=== PATIENT | female | born 1945 | race Caucasian/White ===

== ENCOUNTER 2018-09-07 05:30 | Inpatient (IN) | payer MEDICARE ==
[2018-09-02 10:33] LABS: BASOPHILS % (AUTO) 0.6 % (0-1); EOSINOPHILS # (AUTO) 0.1 X10'3 (0-0.9); EOSINOPHILS % (AUTO) 2.1 % (0-6); LYMPHOCYTES # (AUTO) 1.4 X10'3 (1.1-4.8); LYMPHOCYTES % (AUTO) 32.5 % (21-51); MEAN CORPUSCULAR HEMOGLOBIN 32.1 PG (27.0-31.0); MEAN CORPUSCULAR HGB CONC 33.2 % (33.0-36.5); MEAN CORPUSCULAR VOLUME 96.7 FL (78-98); MEAN PLATELET VOLUME 8.3 FL (7.4-10.4); MONOCYTES # (AUTO) 0.5 X10'3 (0-0.9); MONOCYTES % (AUTO) 10.9 % (2-12); NEUTROPHILS # (AUTO) 2.2 X10'3 (1.8-7.7); NEUTROPHILS % (AUTO) 53.9 % (42-75); PRE OP HEMATOCRIT 42.2 % (35.0-45.0); PRE OP PLATELET COUNT 232 X10'3 (140-440); RED BLOOD COUNT 4.36 X10'6 (4.20-5.60); RED CELL DISTRIBUTION WIDTH 12.1 % (11.5-14.5)
[2018-09-02 10:34] LABS: PRE OP PROTIME 10.1 SECONDS (9.0-12.0)
[2018-09-02 10:37] LABS: ALBUMIN 3.5 G/DL (3.4-5.0); ALBUMIN/GLOBULIN RATIO 0.9 (1.1-1.5); ALKALINE PHOSPHATASE 125 IU/L (46-116); BLOOD UREA NITROGEN 17 MG/DL (7-18); BUN/CREATININE RATIO 16.5 (6.6-38.0); CHLORIDE 102 MMOL/L (99-107); CREATININE 1.03 MG/DL (0.40-0.90); PRE OP ALT 17 U/L (30-65); PRE OP ANION GAP 6 (8-16); PRE OP AST 18 U/L (10-37); PRE OP BILIRUB, TOTAL 0.4 MG/DL (0.0-1.0); PRE OP GLUCOSE 97 MG/DL (70-104); PRE OP POTASSIUM 3.9 MMOL/L (3.4-5.1); PRE OP SODIUM 141 MMOL/L (135-145); TOTAL CARBON DIOXIDE 32.8 MMOL/L (24-32); TOTAL PROTEIN 7.4 G/DL (6.4-8.2); eGFR 53 ML/MIN
[~2018-09-07] VITALS: Ht 170.2 cm; Wt 67.6 kg
[2018-09-07] VITALS (19 sets, daily range): BP systolic 120–158; BP diastolic 63–90
[~2018-09-07 05:30] MED LIST: ASPI-1265 PO; ATOR10TA PO; CITA-278 PO; CLINDAmcin 900mg/NS 50ml IVPB 50 ML IV ONE; LISI10TA4 PO; VANCOMYCIN INJ 1000 MG in NORMAL SALINE 250ml IV.SOLN IV ONE; famotidine 20mg tablet PO ONE; ringers solution, lacted 1,000 ML IV SCH; tranexamic acid inj. 1,000 MG in normal saline 100 ML IV ONE
[2018-09-07] MEDS ORDERED: LIDOcaine 1% (10mg/ml) 2ml vial ONE (06:02)
[2018-09-07] MEDS ORDERED: tetracaine 1% (10mg/ml) pres. free inj. ONE (07:23)
[2018-09-07] MEDS ORDERED: fentaNYL/PF 50MCG/1 ML 2ML syringe ONE (07:25)
[2018-09-07] MEDS ORDERED: morphine /PF 1mg/ml 10ml inj. ONE (07:25)
[2018-09-07] MEDS ORDERED: MIDAZolam 1mg/ml 10ml vial ONE (07:25)
[2018-09-07] MEDS ORDERED: propofol inj 20 ML IV ONE ×2 (08:05)
[2018-09-07] MEDS ORDERED: ringers solution, lacted 1,000 ML IV SCH (08:12)
[2018-09-07] MEDS ORDERED: ondansetron/PF 4mg/2ml inj IV PRN ×2 (08:15→10:30)
[2018-09-07] MEDS ORDERED: hydrALAZINE 20mg/ml inj. IV PRN (08:15)
[2018-09-07] MEDS ORDERED: morphine 4 MG/ML inj SYRINge IV PRN ×2 (08:15)
[2018-09-07] MEDS ORDERED: fentaNYL/PF 50MCG/1 ML 2ML syringe IV PRN ×2 (08:15)
[2018-09-07] MEDS ORDERED: labetalol 20mg/4ml (5mg/ml) syringe IV PRN (08:15)
--- NOTE | 2018-09-07 10:15 | NUR ---
Received from OR via bed, accompanied by Anesthesiologist. Report received. Initial physical assessment done and recorded.
[2018-09-07] MEDS ORDERED: bisacodyl 10mg suppository rectal RC PRN (10:30)
[2018-09-07] MEDS ORDERED: HYDROmorphone inj. 0.5 MG/0.5 ML DISP.SYRIN IV PRN (10:30)
[2018-09-07] MEDS ORDERED: acetaminophen 325mg tablet PO PRN (10:30)
[2018-09-07] MEDS ORDERED: magnesium hydroxide 30ml (MOM) UD suspension PO PRN (10:30)
[2018-09-07] MEDS ORDERED: diphenhydrAMINE 25mg capsule PO PRN ×2 (10:30)
--- NOTE | 2018-09-07 11:30 | NUR ---
Discharge criteria met, report to receiving floor. Transferred to room in stable condition.
[2018-09-07] MEDS: HYDROcodone/acetaminophen 10/325mg tab PO PRN ×4 (13:27→22:04)
[2018-09-07] MEDS: potassium Cl 20mEq in NS 1,000 ML IV SCH ×2 (15:48→23:46)
[2018-09-07] MEDS: aspirin 81mg tablet.DR PO SCH (16:36)
[2018-09-07] MEDS: clindamycin-Cleocin 900mg/D5W 50 ML IV SCH ×2 (16:36→23:42)
--- NOTE | 2018-09-07 18:15 | NUR ---
Problems reprioritized. Patient report given, questions answered & plan of care reviewed with Carol ROJAS.
[2018-09-07] MEDS ORDERED: vancomycin/NS 1 GM ADD-VANTAGE 250 ML IV SCH (20:00)
[2018-09-07] MEDS: sennosides 8.6mg tablet PO SCH (20:13)
[2018-09-08] MEDS: HYDROcodone/acetaminophen 10/325mg tab PO PRN ×2 (01:45→05:28)
[2018-09-08 02:00] VITALS: BP 144/78
[2018-09-08 06:00] VITALS: BP 138/60
[2018-09-08 06:15] LABS: BASOPHILS % (AUTO) 0.1 % (0-1); EOSINOPHILS # (AUTO) 0.2 X10'3 (0-0.9); EOSINOPHILS % (AUTO) 1.8 % (0-6); HEMATOCRIT 31.7 % (35.0-45.0); HEMOGLOBIN 10.4 g/dl (12.0-16.0); LYMPHOCYTES # (AUTO) 0.4 X10'3 (1.1-4.8); LYMPHOCYTES % (AUTO) 3.2 % (21-51); MEAN CORPUSCULAR HEMOGLOBIN 31.9 PG (27.0-31.0); MEAN CORPUSCULAR VOLUME 96.7 FL (78-98); MEAN PLATELET VOLUME 8.2 FL (7.4-10.4); MONOCYTES # (AUTO) 1.2 X10'3 (0-0.9); MONOCYTES % (AUTO) 8.9 % (2-12); NEUTROPHILS # (AUTO) 11.2 X10'3 (1.8-7.7); PLATELET COUNT 176 X10'3 (140-440); RED BLOOD COUNT 3.28 X10'6 (4.20-5.60); RED CELL DISTRIBUTION WIDTH 13.4 % (11.5-14.5); WHITE BLOOD COUNT 13.1 X10'3 (4.5-11.0)
[2018-09-08] MEDS ORDERED: oxyCODONE/APAP 10/325mg tablet PO PRN (06:45)
[2018-09-08 06:51] LABS: ALANINE AMINOTRANSFERASE 21 U/L (12-78); ALBUMIN 2.7 G/DL (3.4-5.0); ALBUMIN/GLOBULIN RATIO 0.8 (1.1-1.5); ALKALINE PHOSPHATASE 82 IU/L (46-116); ANION GAP 7 (8-16); ASPARTATE AMINO TRANSFERASE 34 U/L (10-37); BILIRUBIN,TOTAL 0.6 MG/DL (0.1-1.0); BLOOD UREA NITROGEN 15 MG/DL (7-18); CALCIUM 8.2 MG/DL (8.5-10.1); CHLORIDE 102 MMOL/L (99-107); CREATININE 0.88 MG/DL (0.40-0.90); GLUCOSE 130 MG/DL (70-104); POTASSIUM 4.1 MMOL/L (3.5-5.1); SODIUM 137 MMOL/L (135-145); TOTAL CARBON DIOXIDE 27.7 MMOL/L (24-32); TOTAL PROTEIN 5.9 G/DL (6.4-8.2); eGFR 63 ML/MIN
[2018-09-08] MEDS: aspirin 81mg tablet.DR PO SCH ×2 (07:11→16:42)
[2018-09-08] MEDS: lisinopril 5mg tablet PO SCH (07:11)
[2018-09-08] MEDS: citalopram 20mg tablet PO SCH (07:12)
[2018-09-08] MEDS: clindamycin-Cleocin 900mg/D5W 50 ML IV SCH (07:12)
[2018-09-08 10:00] VITALS: BP 99/56
--- NOTE | 2018-09-08 11:01 | NUR ---
Joint replacement consult: Pt seen by JESÚS for written/verbal high protein ed. JESÚS reviewed high protein needs for wound healing, immune strength, high protein foods, and protein supplementation options. RD contact information provided in case of further questions. Declines additional protein at this time; encouraged to bring premier protein from home since drinks daily. Addendum: 09/08/18 at [address] Amended: Links added.
[2018-09-08] MEDS: potassium Cl 20mEq in NS 1,000 ML IV SCH (11:51)
[2018-09-08 14:00] VITALS: BP 118/53
[2018-09-08] MEDS: oxyCODONE/APAP 10/325mg tablet PO PRN (15:29)
[2018-09-08 18:00] VITALS: BP 104/46
--- NOTE | 2018-09-08 18:18 | NUR ---
PATIENT REPORT RECEIVED FROM MICHEL Cunha RN.
[2018-09-08] MEDS: sennosides 8.6mg tablet PO SCH (20:00)
[2018-09-08 22:00] VITALS: BP 119/51
[2018-09-09] MEDS: potassium Cl 20mEq in NS 1,000 ML IV SCH (01:26)
[2018-09-09] MEDS: oxyCODONE/APAP 10/325mg tablet PO PRN ×2 (03:33→09:28)
[2018-09-09 06:00] VITALS: BP 139/68
--- NOTE | 2018-09-09 06:38 | NUR ---
PATIENT REPORT GIVEN TO ALIVIA ROJAS.
[2018-09-09 06:49] LABS: BASOPHILS % (AUTO) 0.1 % (0-1); EOSINOPHILS % (AUTO) 0.3 % (0-6); HEMATOCRIT 27.5 % (35.0-45.0); HEMOGLOBIN 9.4 g/dl (12.0-16.0); LYMPHOCYTES # (AUTO) 0.5 X10'3 (1.1-4.8); LYMPHOCYTES % (AUTO) 4.5 % (21-51); MEAN CORPUSCULAR HEMOGLOBIN 32.8 PG (27.0-31.0); MEAN CORPUSCULAR HGB CONC 33.9 % (33.0-36.5); MEAN CORPUSCULAR VOLUME 96.6 FL (78-98); MEAN PLATELET VOLUME 8.1 FL (7.4-10.4); MONOCYTES % (AUTO) 8.3 % (2-12); NEUTROPHILS # (AUTO) 10.2 X10'3 (1.8-7.7); NEUTROPHILS % (AUTO) 86.8 % (42-75); PLATELET COUNT 144 X10'3 (140-440); RED BLOOD COUNT 2.85 X10'6 (4.20-5.60); RED CELL DISTRIBUTION WIDTH 12.5 % (11.5-14.5); WHITE BLOOD COUNT 11.7 X10'3 (4.5-11.0)
[2018-09-09 06:59] LABS: ALANINE AMINOTRANSFERASE 21 U/L (12-78); ALBUMIN 2.2 G/DL (3.4-5.0); ALBUMIN/GLOBULIN RATIO 0.7 (1.1-1.5); ALKALINE PHOSPHATASE 75 IU/L (46-116); ANION GAP 6 (8-16); ASPARTATE AMINO TRANSFERASE 37 U/L (10-37); BILIRUBIN,TOTAL 0.5 MG/DL (0.1-1.0); BLOOD UREA NITROGEN 17 MG/DL (7-18); CALCIUM 7.9 MG/DL (8.5-10.1); CHLORIDE 105 MMOL/L (99-107); GLUCOSE 124 MG/DL (70-104); POTASSIUM 4.2 MMOL/L (3.5-5.1); SODIUM 138 MMOL/L (135-145); TOTAL CARBON DIOXIDE 27.2 MMOL/L (24-32); TOTAL PROTEIN 5.5 G/DL (6.4-8.2); eGFR 55 ML/MIN
--- NOTE | 2018-09-09 08:30 | NUR ---
Patient in room [facility]. I have received report from ALIVIA ROJAS and had the opportunity to ask questions and assume patient care.
[2018-09-09] MEDS: lisinopril 5mg tablet PO SCH (09:27)
[2018-09-09] MEDS: citalopram 20mg tablet PO SCH (09:28)
[2018-09-09] MEDS: aspirin 81mg tablet.DR PO SCH ×2 (09:28→17:26)
[2018-09-09 10:00] VITALS: BP 147/61
[2018-09-09 18:00] VITALS: BP 134/57
--- NOTE | 2018-09-09 18:18 | NUR ---
Problems reprioritized. Patient report given, questions answered & plan of care reviewed with LEX ROJAS.
--- NOTE | 2018-09-09 18:27 | NUR ---
PATIENT REPORT RECEIVED FROM JEAN CLAUDE ROJAS.
[2018-09-09] MEDS: sennosides 8.6mg tablet PO SCH (20:28)
[2018-09-09 22:00] VITALS: BP 137/64
[2018-09-10] MEDS: oxyCODONE/APAP 5-325mg tablet PO PRN ×2 (00:29→04:50)
[2018-09-10 06:18] LABS: BASOPHILS % (AUTO) 0.1 % (0-1); EOSINOPHILS # (AUTO) 0.1 X10'3 (0-0.9); EOSINOPHILS % (AUTO) 0.6 % (0-6); HEMATOCRIT 25.5 % (35.0-45.0); HEMOGLOBIN 8.7 g/dl (12.0-16.0); LYMPHOCYTES # (AUTO) 0.8 X10'3 (1.1-4.8); LYMPHOCYTES % (AUTO) 8.6 % (21-51); MEAN CORPUSCULAR HEMOGLOBIN 32.7 PG (27.0-31.0); MEAN CORPUSCULAR HGB CONC 34.3 % (33.0-36.5); MEAN CORPUSCULAR VOLUME 95.2 FL (78-98); MEAN PLATELET VOLUME 8.2 FL (7.4-10.4); MONOCYTES % (AUTO) 9.9 % (2-12); NEUTROPHILS % (AUTO) 80.8 % (42-75); PLATELET COUNT 144 X10'3 (140-440); RED BLOOD COUNT 2.68 X10'6 (4.20-5.60); RED CELL DISTRIBUTION WIDTH 12.6 % (11.5-14.5); WHITE BLOOD COUNT 9.9 X10'3 (4.5-11.0)
--- NOTE | 2018-09-10 06:22 | NUR ---
PATIENT REPORT GIVEN TO LIBORIO ROJAS.
[2018-09-10 06:30] LABS: ALANINE AMINOTRANSFERASE 21 U/L (12-78); ALBUMIN 2.1 G/DL (3.4-5.0); ALBUMIN/GLOBULIN RATIO 0.6 (1.1-1.5); ALKALINE PHOSPHATASE 90 IU/L (46-116); ANION GAP 7 (8-16); ASPARTATE AMINO TRANSFERASE 36 U/L (10-37); BILIRUBIN,TOTAL 0.8 MG/DL (0.1-1.0); BLOOD UREA NITROGEN 14 MG/DL (7-18); BUN/CREATININE RATIO 14.7 (6.6-38.0); CALCIUM 8.3 MG/DL (8.5-10.1); CHLORIDE 105 MMOL/L (99-107); CREATININE 0.95 MG/DL (0.40-0.90); GLUCOSE 110 MG/DL (70-104); POTASSIUM 3.6 MMOL/L (3.5-5.1); SODIUM 139 MMOL/L (135-145); TOTAL CARBON DIOXIDE 27.2 MMOL/L (24-32); TOTAL PROTEIN 5.6 G/DL (6.4-8.2); eGFR 58 ML/MIN
[2018-09-10 07:00] VITALS: BP_SYST 135
[2018-09-10] MEDS: lisinopril 5mg tablet PO SCH (08:17)
[2018-09-10] MEDS: aspirin 81mg tablet.DR PO SCH (08:17)
[2018-09-10] MEDS: citalopram 20mg tablet PO SCH (08:17)
[2018-09-10] MEDS ORDERED: PER10325T PO (08:33)
[2018-09-10] MEDS ORDERED: ASPI-1071 PO (08:33)
== END 2018-09-10 12:10 | disposition home health service (06) | DRG 470 ==
LOC: PAS IN 05:30 → EDSTATUS 07:30 → ORTHO 4S 11:38
PROVIDERS: ADMIT Orthopaedic Surgery; ATTEND Orthopaedic Surgery
PROC: 0SR906Z Replacement of Right Hip Joint with Oxidized Zirconium on Polyethylene Synthetic Substitute, Open Approach (ICD-10-PCS; principal; 2018-09-07 07:20)
DX: M16.11 Unilateral primary osteoarthritis, right hip (principal); D62 Acute posthemorrhagic anemia; F32.9 Major depressive disorder, single episode, unspecified; Z96.652 Presence of left artificial knee joint; I10 Essential (primary) hypertension; Z88.1 Allergy status to other antibiotic agents; Z79.899 Other long term (current) drug therapy
CPT/HCPCS: 36415; 80053; 85025; 85610; 85730; 86870; 86885; 86900; 86901; 86902; 86922; 87070; 93005; 97110; 97116; 97161; 97530; A6257; A6449; A7000; C1758; C1776; G0378; J2250; J2274; J2405; J2704; J3010; J3370; J3490; J7030; J7120; Q0163

== ENCOUNTER 2023-12-13 07:43 | Emergency (ER) | payer MEDICARE, BC ==
[~2023-12-13] VITALS: Ht 152.4 cm; Wt 61.0 kg
[~2023-12-13 07:43] MED LIST changes: -ASPI-1265 PO; -ATOR10TA PO; -CITA-278 PO; +CITA20TA28 PO; -CLINDAmcin 900mg/NS 50ml IVPB 50 ML IV ONE; +LISI10TA27 PO; -LISI10TA4 PO; -VANCOMYCIN INJ 1000 MG in NORMAL SALINE 250ml IV.SOLN IV ONE; -famotidine 20mg tablet PO ONE; -ringers solution, lacted 1,000 ML IV SCH; -tranexamic acid inj. 1,000 MG in normal saline 100 ML IV ONE
[2023-12-13 07:53] VITALS: BP 164/96; PULSE 71; RESP 18; TEMP 99; O2SAT 96
[2023-12-13] MEDS ORDERED: ketorolac trometh. 30mg/ml inj. IM ONE (08:50)
[2023-12-13] MEDS: HYDROcodone/acetaminophen 5mg/325mg tablet PO ONE (09:57)
[2023-12-13] MEDS: ketorolac tromethamine 15mg/ml inj. IM ONE (09:57)
[2023-12-13] MEDS ORDERED: TRAM50TA2 PO (10:34)
== END 2023-12-13 11:33 | disposition home or self-care (01) ==
LOC: ER 07:43
DX: M54.50 Low back pain, unspecified (principal); E78.00 Pure hypercholesterolemia, unspecified; I10 Essential (primary) hypertension; Z88.0 Allergy status to penicillin; Z88.8 Allergy status to other drugs, medicaments and biological substances; M19.90 Unspecified osteoarthritis, unspecified site; W19.XXXA Unspecified fall, initial encounter; Y93.89 Activity, other specified; Y92.89 Other specified places as the place of occurrence of the external cause; Y99.8 Other external cause status
CPT/HCPCS: 72100; 72170; 73140; 96372; 99284; J1885